=== PATIENT | female | born 1945 | race Caucasian/White ===

== ENCOUNTER 2018-12-03 09:49 | Emergency (ER) | payer MEDICARE, BC ==
[~2018-12-03] VITALS: Ht 170.2 cm; Wt 68.0 kg
== END 2018-12-03 12:15 | disposition home or self-care (01) ==
LOC: ER 09:49
DX: S01.01XA Laceration without foreign body of scalp, initial encounter (principal); W01.198A Fall on same level from slipping, tripping and stumbling with subsequent striking against other object, initial encounter; Z88.8 Allergy status to other drugs, medicaments and biological substances
CPT/HCPCS: 12001; 99282-25

== ENCOUNTER 2019-06-18 16:16 | Inpatient (IN) | payer MEDICARE, BC ==
[~2019-06-18] VITALS: Ht 170.2 cm; Wt 68.2 kg
[2019-06-18 19:56] LABS: BASOPHILS ABSOLUTE AUTO 0.04 K/mm3 (0.00-0.23); BASOPHILS PERCENT AUTO 1 % (0-2); EOSINOPHILS ABSOLUTE AUTO 0.18 K/mm3 (0.00-0.68); EOSINOPHILS PERCENT AUTO 2 % (0-6); Hematocrit 36.6 % (33.0-51.0); Hemoglobin 11.8 g/dL (11.5-16.0); IMMATURE GRAN ABSOLUTE AUTO 0.02 K/mm3 (0.00-0.10); IMMATURE GRAN PERCENT AUTO 0 % (0-1); LYMPHOCYTES PERCENT AUTO 27 % (21-46); MONOCYTES ABSOLUTE AUTO 1.06 K/mm3 (0.16-1.47); MONOCYTES PERCENT AUTO 12 % (4-13); Mean Corpuscular HGB 30.2 pg (26.0-34.0); Mean Corpuscular HGB Conc 32.2 g/dL (31.5-36.5); Mean Corpuscular Volume 94 fL (80-100); Mean Platelet Volume 9.9 fL (9.1-12.4); NEUTROPHILS PERCENT AUTO 58 % (41-73); Platelet Count 223 K/mm3 (150-400); RDW Coefficient Variation 14.2 % (11.7-14.2); RDW Standard Deviation 48.9 fL (35.1-46.3); Red Blood Cell Count 3.91 M/mm3 (3.80-5.20)
[2019-06-18 20:17] LABS: Alanine Aminotransfer (ALT/SGP 22 U/L (12-78); Albumin, Blood 3.3 g/dL (3.4-5.0); Albumin/Globulin Ratio 1.1 (0.8-1.8); Alk Phos 96 U/L (50-136); Anion Gap 10 mmol/L (6-16); Aspartate Aminotrans (AST/SGOT 22 U/L (12-37); Bilirubin, Total 0.3 mg/dL (0.1-1.0); Blood Urea Nitrogen 19 mg/dL (8-24); Bun/Creatinine Ratio 22.7 (12.0-20.0); CO2, Blood 24 mmol/L (21-32); Chloride, Blood 109 mmol/L (98-108); Creatinine, Blood 0.84 mg/dL (0.40-1.00); Glomerular Filtration Rate >60 (60-); Glucose, Blood 90 mg/dL (70-99); Potassium, Blood 2.3 mmol/L (3.5-5.5); Sodium, Blood 143 mmol/L (136-145); Total Protein, Blood 6.3 g/dL (6.4-8.2)
[2019-06-18] MEDS ORDERED: Citalopram HBr10 MG PO (21:01)
[2019-06-18] MEDS ORDERED: FLUZONE HI180 MCG/06 IM (21:01)
[2019-06-18] MEDS ORDERED: Razadyne8 MG PO (21:01)
[2019-06-18] MEDS ORDERED: OLANZAPINE5 M1 PO (21:01)
[2019-06-18] MEDS ORDERED: OMEP20ER PO (21:01)
[2019-06-18] MEDS ORDERED: OLAN2.5 PO (23:11)
[2019-06-18] MEDS ORDERED: DOCU100 PO (23:12)
[2019-06-18] MEDS ORDERED: POLY500 PO (23:12)
[2019-06-18] MEDS ORDERED: ACETAMINOPHEN500 M2 PO (23:12)
[2019-06-18] MEDS ORDERED: PROBIOTIC-10 11 EACH PO (23:13)
[2019-06-18] MEDS ORDERED: ACET500 PO (23:13)
[2019-06-19 06:05] LABS: Anion Gap 5 mmol/L (6-16); Blood Urea Nitrogen 12 mg/dL (8-24); Bun/Creatinine Ratio 15.8 (12.0-20.0); CO2, Blood 27 mmol/L (21-32); Calcium, Blood 8.5 mg/dL (8.5-10.1); Chloride, Blood 112 mmol/L (98-108); Creatinine, Blood 0.76 mg/dL (0.40-1.00); Glomerular Filtration Rate >60 (60-); Glucose, Blood 94 mg/dL (70-99); Potassium, Blood 2.7 mmol/L (3.5-5.5); Sodium, Blood 144 mmol/L (136-145)
--- NOTE | 2019-06-19 06:37 | NUR ---
SHIFT SUMMARY PT HAD NO NOTED ISSUES THIS SHIFT. PT IS ICOTINENT. PT IS NONVERBAL AND DOES NOT FOLLOW DIRECTION. PT HAS BEEN SLEEPING AND BREATHING EASY. BED ALARM IS ARMED AND CALL LIGHT IN REACH.
[2019-06-19] MEDS ORDERED: BISA10S PR (08:09)
[2019-06-19] MEDS ORDERED: ENEMA READY TO133 ML PR (08:10)
[2019-06-19] MEDS ORDERED: Expectoran100 MG/51 PO (08:11)
[2019-06-19] MEDS ORDERED: MILK OF MA400 MG/5 M PO (08:12)
[2019-06-19] MEDS ORDERED: Mag-Al Plus Sus30 ML PO (08:13)
[2019-06-19] MEDS ORDERED: Pepto-Bismol262 MG PO (08:14)
[2019-06-19] MEDS ORDERED: DOCU100 PO (09:40)
[2019-06-19] MEDS ORDERED: ACET500 PO (09:41)
--- NOTE | 2019-06-19 15:13 | NUR ---
TRANSFER NOTE- PT TRANSFERED TO [facility] FOR PT SAFETY. POTASSIUM (K-RIDER) INFUSION COMPLETED PRIOR TO TRANSFER. IV SL AT THE TIME PT ARRIVED. SITE ARROUND THE IV APPEARS PUFFY AND PT C/O PAIN AND BURNING WHEN THE IV WAS FLUSHED WILL REMOVE AND PLACE A NEW IV SHORTLY.
--- NOTE | 2019-06-19 18:24 | NUR ---
CALLED DR HOBBS- UNABLE TO OBTAIN IV ACCESS AT THIS TIME. PT FAMILY LEFT AND PT IS CONFUSED ATTEMPTING TO GET OUT OF BED 3 TIMES IN 5 MINUTES. PT ATTENDS WERE CHANGED AND SHE STATED SHE HAS TO GO BUT CAN NOT TELL STAFF WHERE SHE HAS TO GO. UNABLE TO REDIRECT. PT PLACED ON CAMERAS EARLIER FOR PT SAFETY. THE ONLT THING THAT KEEPS HER IN BED IS STAFF 1:1 WITH HER. REQUESTED [facility] FOR PT SAFETY, NEW ORDER RECIEVED FOR DC IV POTASSIUM AND ATTEMPT PO POTASSIUM 40MEQ PO OT NOW. PER DR HOBBS NO RESTRAINTS TO BE USED, NEW ORDER FOR IM HALDOL.
--- NOTE | 2019-06-19 19:26 | NUR ---
SHIFT SUMMARY- PT WAS ABLE TO TAKE THE PO POTASSIUM 40MEQ, WHILE RN WAS SPEAKING WITH THE DR IV ACCESS WAS OBTAINED. PT HAS A 20G IV IN THE RIGHT FORE ARM THAT IS SALINE LOCKED. IV LINE WAS WRAPPED TO PROTECT FROM PT PULLING. PT IS ON THE MONITORS FOR SAFETY. SPOUSE IS AT THE BEDSIDE. PASSED ON IN REPORT NO RESTRAINTS ORDERED PER DR HOBBS, PRN MEDICATIONS IN EMAR. PT APPEARS TO BE PLEASENTLY CONFUSED HOWEVER WHEN STAFF TRY TO CHANGE HER ATTENDS PT CAN BECOME VIOLENT, STAFF SHOULD BE AWARE.
[2019-06-20 05:47] LABS: Magnesium, Blood 1.9 mg/dL (1.6-2.4)
[2019-06-20 05:51] LABS: Anion Gap 7 mmol/L (6-16); Blood Urea Nitrogen 9 mg/dL (8-24); Bun/Creatinine Ratio 14.2 (12.0-20.0); CO2, Blood 24 mmol/L (21-32); Chloride, Blood 113 mmol/L (98-108); Creatinine, Blood 0.63 mg/dL (0.40-1.00); Glomerular Filtration Rate >60 (60-); Glucose, Blood 104 mg/dL (70-99); Potassium, Blood 2.7 mmol/L (3.5-5.5); Sodium, Blood 144 mmol/L (136-145)
--- NOTE | 2019-06-20 06:46 | NUR ---
THE PATIENT WAS CALM MOST OF THE SHIFT, SHE WASNT TOLERANT OF LINENE CHANGES AND BECAME RESISTIVE AND COMBATIVE DURING BEDSIDE CARE. ONCE OR TWICE SHE STARTED MIGRATING TOWARD THE BOTTOEM OF THE BED TO ESCAPE BUT WAS EASILY RE-DIRECTED AND SETTLED DOWN WELL TO SLEEP REQUESTED. BED LOW AND ALARMED. CALL BRAXTON WITHIN REACH.
--- NOTE | 2019-06-20 07:10 | NUR ---
ASSUMED CARE OF PT- REPORT COMPLETED WITH NIGHT RN AKASH. PER REPOR PT HAD A GOOD NIGHT AND SLEPT WELL. ATTEMPTS TO GET OUT OF BED WERE MINIMAL. POTASSIUM LEVEL DROPPED AGAIN ON MORNING LABS WILL SPEAK TO DR ABOUT POSSIBLE IV REPLACEMENT. PT STILL HAS THE NEW IV THAT WAS PLACED LAST NIGHT. NO STOOLS T/O THE NIGHT.
--- NOTE | 2019-06-20 07:45 | NUR ---
CALLED DR HOBBS- PT POTASSIUM LEVEL WENT BACK DOWN TO 2.7 AFTER THE 40 MEQ OF PO POTASSIUM. NEW ORDER RECIEVED FOR 60MEQ IV POTASSIUM WITH NS TO RUN CONCURRENTLY WITH IT.
--- NOTE | 2019-06-20 12:30 | NUR ---
PT HAD A BOWEL MOVEMENT. PT BECAME AGGITATED ATTEMPTING TO GET OUT OF BED. OFFERED TO TAKE HER TO THE BATHROOM, PT SHOOK HER HEAD AND STARTED WALKING OUT THE DOOR TO THE ROOM. STAFF ASSISTED HER WITH FWW AND GAIT BELT WITH THE IV POLE IN TOW. PT WALKED TO THE END OF THE HAWKINS BY THE WINDOW THEN SHE SUDDENLY TURNED ARROUND AND BEGAN WALKING MORE BRISKLY TOWARDS HER ROOM. PT HAD A LARGE LIQUID BOWEL MOVEMENT, LIGHT BROWN IN COLOR. PT WALKED BACK TO HER ROOM WITH STAFF MULTIPLE BMS ALONG THE WAY, ONCE IN HER ROOM PT ASSISTED TO THE BATHROOM WHERE SHE HAD ANOTHER BOWEL MOVEMENT. PT RECIEVED A SPOUNGE BATH, FULL BODY. PT ABDOMEN APPEARS LESS DISTENDED AND MORE SOFT. BOWEL TONES AUDIBLE FROM A DISTANCE.
--- NOTE | 2019-06-20 16:10 | NUR ---
LAB CAME TO ATTEMPT A LAB DRAW, PT VERY FIGETTY AND UNABLE TO UNDERSTAND WHAT IS GOING ON. PT SPOUSE AT THE BEDSIDE ATTEMPTED TO HOLD HER HAND, PT BECAME AGGITATED UNABLE TO GET THE BLOOD DRAW, PRECISION LATHE OPERATOR LEFT TO GET A DIFFERENT TECH TO ATTEMPT THE POTASSIUM LAB DRAW.
--- NOTE | 2019-06-20 16:25 | NUR ---
SPOKE TO DR HOBBS- PT TO AGGITATED TO GET ACCURATE VITALS, TOO FIDGETTY FOR BLOOD DRAW, APPEARS TO BE OVER STIMULATED. GAVE ZYPREXA PRN AND OK TO HOLD LAB UNTIL PT IS MORE CALM. DR AWARE LAB DRAW DELAYED AND WHY. PT LAST BP ELEVATED D/T MOVING AND AGGITATION.
--- NOTE | 2019-06-20 17:39 | NUR ---
SHIFT SUMMARY- PT HAS HAD NO ACUTE CHANGES T/O THE SHIFT. PT CURRENTLY EATING DINNER WITH HER SPOUSE ASSISTING. PT RECIEVED PRN ZYPREXA A LITTLE EARLIER IN THE SHIFT. SHE APPEARS TO BE A LITTLE MORE CALM AT THIS TIME. WILL CALL LAB FOR ANOTHER ATTEMPT AT BLOOD DRAW AFTER THE PT IS DONE EATING. PT HAD MULTIPLE BMS TODAY. SEE PREVIOUS NOTES FOR MORE DETAILS.
--- NOTE | 2019-06-20 18:38 | NUR ---
CALLED WAITING FOR CALL BACK PT POTASSIUM CAME UP TO 3.1 CALLED TO UPDATE AND SEE IF MORE SUPPLEMENTATION WOULD BE DONE TONIGHT.
--- NOTE | 2019-06-20 19:39 | NUR ---
SPOKE TO DR HOBBS- PT TO RECIEVE 40MEQ OF IV POTASSIUM RUN CONCURRENTLY WITH EQUAL AMOUNT OF SALINE. ORDER PLACED IN THE COMPUTER FOR A NOW DOSE. STATED IF THE PT IS AGGITATED OK FOR STAFF TO WAIT AND GIVE IV POTASSIUM ONCE SHE IS CALMED.
--- NOTE | 2019-06-21 00:20 | NUR ---
PATIENT RESTING. IV POTASSIUM INFUSED. BED ALARM ACTIVATED. WILL CONTINUE TO MONITOR.
--- NOTE | 2019-06-21 03:55 | NUR ---
HOSPITALIST DR CHÁVEZ NOTIFIED OF NO LAB ORDER FOR AM. REPORTS TO ORDER RENAL PANEL. COMPLETE.
--- NOTE | 2019-06-21 04:28 | NUR ---
SHIFT SUMMARY PATIENT HAD NO ACUTE CHANGES OBSERVED. AXOX ONE WITH HX ADVANCED DEMENTIA. ONE ASSIST TO BSC. MEDICATION CRUSHED IN PUDDING. PIV REMAINS INTACT. IV POTASSIUM CHLORIDE X TWO GIVEN PER EMAR. RENAL PANEL LAB ORDERED PER DR CHÁVEZ. BED ALARM ACTIVATED. DENIES PAIN, SOB, AND N/V. AFEBRILE. CALL LIGHT IN REACH. BED IN LOWEST POSITION AND ALARM ACTIVATED. WILL CONTINUE TO MONITOR UNTIL DAY SHIFT NURSE ASSUMES CARE.
[2019-06-21 05:35] LABS: Albumin, Blood 3.1 g/dL (3.4-5.0); Anion Gap 8 mmol/L (6-16); Blood Urea Nitrogen 11 mg/dL (8-24); Bun/Creatinine Ratio 15.7 (12.0-20.0); CO2, Blood 24 mmol/L (21-32); Calcium, Blood 9.1 mg/dL (8.5-10.1); Chloride, Blood 113 mmol/L (98-108); Glomerular Filtration Rate >60 (60-); Glucose, Blood 101 mg/dL (70-99); Phosphorus, Blood 2.6 mg/dL (2.5-4.9); Potassium, Blood 2.9 mmol/L (3.5-5.5); Sodium, Blood 145 mmol/L (136-145)
[2019-06-21 09:47] LABS: Hematocrit 42.1 % (33.0-51.0); Hemoglobin 13.9 g/dL (11.5-16.0)
--- NOTE | 2019-06-21 18:19 | NUR ---
PATIENT WITH HX OF DEMENTIA, ORIENTED TO SELF AND FAMILY MOSTLY NONVERBAL. K+ 3.4 AND AN EXTRA 40MEQ GIVEN. DR. GRANADOS CONSULTING. BLADDER SCAN DONE WHICH SHOWED 220ML'S IN BLADDER, DR. GRANADOS NOTIFIED. PATIENT DENIES ANY PAIN. ABDOMEN REMAINS VERY DISTENDED, NO BM THIS SHIFT. INCONTINENT OF URINE. TOLERATING DIET, NEEDS ASSISTANCE WITH MEALS. VSS, ON RA. UP WITH GAIT BELT AND SBA WALKING IN HALLS. AT BEDSIDE FOR MOST OF THIS SHIFT ASSISTING WITH CARE. 20G IV TO R FA WNL AND SL.
--- NOTE | 2019-06-22 05:13 | NUR ---
pt with severe abd distention firm and no observed stool or flatus. No urine output, bladder scan 784. Call DR Klein to discuss use or protocol order for carlson versus straight cath. updated on no flatus 0 stool . Gave MOM colace sennacot at HS with no effect. Will straight cath as per order. Fed small amt of soft diet. Fall and aspiration precautions in place.
[2019-06-22 05:21] LABS: Hemoglobin 12.6 g/dL (11.5-16.0)
[2019-06-22 05:48] LABS: Alanine Aminotransfer (ALT/SGP 21 U/L (12-78); Albumin, Blood 3.2 g/dL (3.4-5.0); Alk Phos 106 U/L (50-136); Amylase, Blood 50 U/L (25-115); Anion Gap 6 mmol/L (6-16); Aspartate Aminotrans (AST/SGOT 24 U/L (12-37); Bilirubin, Direct <0.1 mg/dL (0.0-0.3); Bilirubin, Indirect Unable to Calculate mg/dL (0.1-0.7); Bilirubin, Total 0.5 mg/dL (0.1-1.0); Blood Urea Nitrogen 15 mg/dL (8-24); Bun/Creatinine Ratio 19.7 (12.0-20.0); CO2, Blood 25 mmol/L (21-32); Calcium, Blood 9.4 mg/dL (8.5-10.1); Chloride, Blood 115 mmol/L (98-108); Creatinine, Blood 0.76 mg/dL (0.40-1.00); Globulin, Blood 3.2 g/dL (2.2-4.0); Glomerular Filtration Rate >60 (60-); Glucose, Blood 103 mg/dL (70-99); Magnesium, Blood 2.2 mg/dL (1.6-2.4); Phosphorus, Blood 3.1 mg/dL (2.5-4.9); Potassium, Blood 3.5 mmol/L (3.5-5.5); Sodium, Blood 146 mmol/L (136-145); Total Protein, Blood 6.4 g/dL (6.4-8.2)
--- NOTE | 2019-06-22 16:32 | NUR ---
SHIFT SUMMARY PATIENT DENIES PAIN, NAUSEA, AND SHORTNESS OF BREATH. PATIENT UP ONE ASSIST TO BATH ROOM AND WALKED IN HALLWAY WITH HER SEVERAL TIMES TODAY. PATIENT'S ABDOMEN IS STILL DISTENDED. NEW ORDERS FOR BOWEL CARE RECEIVED. BLADDER SCAN Q6, STRAIGHT CATH IF GREATER THAN 400. CALL LIGHT IN REACH.
--- NOTE | 2019-06-22 20:08 | NUR ---
PT sleeping with fall precautions in place. verified remote camera monitoring with [employer] camera technical system analyst. PT continues no stool since 06/19/19 recorded and she has been straight cathed at 0630 AM for 680 clear anish urine. Severe abd distention tympanic hyperactive bowel souns , no flatus observed but loud gurgles of bowel sounds observed intermittantly.
[2019-06-23 07:22] LABS: Albumin, Blood 3.5 g/dL (3.4-5.0); Anion Gap 10 mmol/L (6-16); Blood Urea Nitrogen 15 mg/dL (8-24); Bun/Creatinine Ratio 20.9 (12.0-20.0); CO2, Blood 24 mmol/L (21-32); Calcium, Blood 9.5 mg/dL (8.5-10.1); Chloride, Blood 112 mmol/L (98-108); Creatinine, Blood 0.72 mg/dL (0.40-1.00); Glomerular Filtration Rate >60 (60-); Glucose, Blood 109 mg/dL (70-99); Magnesium, Blood 2.5 mg/dL (1.6-2.4); Phosphorus, Blood 3.3 mg/dL (2.5-4.9); Potassium, Blood 3.3 mmol/L (3.5-5.5); Sodium, Blood 146 mmol/L (136-145)
--- NOTE | 2019-06-23 10:00 | NUR ---
PT. AMBULATING IN HAWKINS WITH SPOUSE, HAD A LARGE LOOSE BM ON FLOOR, BROWN IN COLOR. PT. CLEANED UP AND TAKEN BACK TO ROOM FOR SHOWER. FOLLOWED SPOUSE BACK TO ROOM.
--- NOTE | 2019-06-23 17:59 | NUR ---
PT. SITTING UP IN BED WATCHING TV. HAS BEEN NONVERBAL ALL DAY, OCCASSIONALLY PT. SMILES OR NODS HER HEAD OTHERWISE SHE DOES NOT RESOND AT ALL. PT. HAD ANOTHER BM IN THE HAWKINS WHILE AMBULATING. SECOND SHOWER GIVEN. PT. TAKES HER MEDS WELL. BLADDER SCAN SHOWED 199 PVR. PT. GETTING BETTER AT COOPERATING WITH US AFTER HER SPOUSE LEAVES. TAKES MEDS WELL IN APPLE SAUCE. COVERED IV WITH KOBAN TO PREVENT PT. FROM PLAYING WITH IT. NO OTHER NOTED CHANGES THIS SHIFT. EVEN THOUGH THE PT. HAD 2 LARGE LIQUID BMS TODAY HER ABDOMEN IS STILL DISTENDED WITH HYPERACTIVE BOWEL TONES.
--- NOTE | 2019-06-24 04:47 | NUR ---
SHIFT SUMMARY RESPONDS TO VERBAL/PAINFUL STIMULI OCCASIONALLY. ORIENTED TO SELF/FAMILY NO SIGNS/SYMPTOMS OF PAIN/DISCOMFORT. REPOSITIONED TOLERATED. BLADDER SCAN YEILDED 484; CONSULTED OUTSIDE SALES MANAGER, STATED TO HOLD OFF ON ANY STRAIGHT CATH AT THIS TIME. REMAINS INCONTINENT OF URINE AND STOOL; HOWEVER NO EPISODES DIARRHEA THIS SHIFT. HYPERTENSIVE BUT APPEARS ON TREND WITH PREVIOUS PRESSURES. APPEARED TO REST MUCH OF SHIFT. NO AUCTE CHANGES NOTED. BED IN LOWEST POSITION; ALARM ON. CALL LIGHT WITHIN REACH. WCTM.
[2019-06-24 05:04] LABS: Hemoglobin 11.9 g/dL (11.5-16.0)
[2019-06-24 05:26] LABS: Anion Gap 8 mmol/L (6-16); Blood Urea Nitrogen 18 mg/dL (8-24); Bun/Creatinine Ratio 22.4 (12.0-20.0); CO2, Blood 22 mmol/L (21-32); Calcium, Blood 9.2 mg/dL (8.5-10.1); Chloride, Blood 115 mmol/L (98-108); Creatinine, Blood 0.81 mg/dL (0.40-1.00); Glomerular Filtration Rate >60 (60-); Glucose, Blood 97 mg/dL (70-99); Magnesium, Blood 2.3 mg/dL (1.6-2.4); Phosphorus, Blood 3.6 mg/dL (2.5-4.9); Sodium, Blood 145 mmol/L (136-145)
[2019-06-24] MEDS ORDERED: Prinivil10 MG PO (11:18)
[2019-06-24] MEDS ORDERED: POLY500 PO (11:18)
[2019-06-24] MEDS ORDERED: POTA10T PO (11:19)
[2019-06-24] MEDS ORDERED: SPIR25 PO (11:19)
--- NOTE | 2019-06-24 13:30 | NUR ---
PT. TRANSFERRED BACK TO [place] WITH HH WITH [facility]. SPOUSE TRANSPORTING PT. BACK TO [place] VIA CAR. PT. DID NOT HAVE A BM BEFORE LEAVING HERE. PT. EXCITED TO BE GOING HOME.
--- NOTE | 2019-06-24 18:25 | NUR ---
Review of p[atient with . Gave him literature on [facility]. He reviewed how pt was functioning at the memory long term. Reviewed with strategies of care acan levels of care including code status. Also reviewed hospice care for when the pt declines futher and discussing patietns and family wishes. will speak with nurse at [facility] about care needs.
[2019-06-28 06:07] LABS: ALDOS/RENIN RATIO >10.2 (0.0-30.0); ALDOSTERONE 1.7 ng/dL (0.0-30.0)
== END 2019-06-24 13:35 | disposition home health service (06) | DRG 392 ==
LOC: ER 16:16 → MEDS 16:17 → ENPENDDIS 06-24 10:00 → MEDS 06-24 13:35
PROVIDERS: Family Medicine; Internal Medicine; Internal Medicine Nephrology; Physician Assistant; ADMIT Hospitalist
DX: R14.0 Abdominal distension (gaseous) (principal); F02.81 Dementia in other diseases classified elsewhere, unspecified severity, with behavioral disturbance; N17.9 Acute kidney failure, unspecified; E87.0 Hyperosmolality and hypernatremia; G30.9 Alzheimer's disease, unspecified; E87.6 Hypokalemia; K21.9 Gastro-esophageal reflux disease without esophagitis; F32.9 Major depressive disorder, single episode, unspecified; I12.9 Hypertensive chronic kidney disease with stage 1 through stage 4 chronic kidney disease, or unspecified chronic kidney disease; N18.2 Chronic kidney disease, stage 2 (mild); E86.9 Volume depletion, unspecified; E88.09 Other disorders of plasma-protein metabolism, not elsewhere classified; K59.00 Constipation, unspecified; R33.9 Retention of urine, unspecified
CPT/HCPCS: 36415; 74018; 74176; 80048; 80053; 80069; 82088; 82150; 82248; 83690; 83735; 84100; 84132; 84133; 84244; 85014; 85018; 85025; 96365; 96366; 96375; 97116; 97162; 97530; 99285-25; J1630; J1650; J2060; J3480; J7030; J7050

== ENCOUNTER 2019-07-03 09:45 | Emergency (ER) | payer MEDICARE, BC ==
[~2019-07-03] VITALS: Ht 165.1 cm; Wt 54.4 kg
[~2019-07-03 09:45] MED LIST: ACET500 PO; ACETAMINOPHEN500 M2 PO; BISA10S PR; Citalopram HBr10 MG PO; DOCU100 PO; ENEMA READY TO133 ML PR; Expectoran100 MG/51 PO; FLUZONE HI180 MCG/06 IM; MILK OF MA400 MG/5 M PO; Mag-Al Plus Sus30 ML PO; OLAN2.5 PO; OLANZAPINE5 M1 PO; OMEP20ER PO; POLY500 PO; POTA10T PO; PROBIOTIC-10 11 EACH PO; Pepto-Bismol262 MG PO; Prinivil10 MG PO; Razadyne8 MG PO; SPIR25 PO
== END 2019-07-03 10:43 | disposition home or self-care (01) ==
LOC: ER 09:45
DX: S01.01XA Laceration without foreign body of scalp, initial encounter (principal); F03.90 Unspecified dementia, unspecified severity, without behavioral disturbance, psychotic disturbance, mood disturbance, and anxiety; W18.30XA Fall on same level, unspecified, initial encounter; Z88.8 Allergy status to other drugs, medicaments and biological substances; Z79.899 Other long term (current) drug therapy; I10 Essential (primary) hypertension; K21.9 Gastro-esophageal reflux disease without esophagitis
CPT/HCPCS: 12001; 99283-25

== ENCOUNTER 2019-07-19 13:46 | Inpatient (IN) | payer MEDICARE, BC ==
[~2019-07-19] VITALS: Ht 170.2 cm; Wt 65.1 kg
[2019-07-19 15:17] LABS: BASOPHILS ABSOLUTE AUTO 0.05 K/mm3 (0.00-0.23); BASOPHILS PERCENT AUTO 0 % (0-2); EOSINOPHILS PERCENT AUTO 0 % (0-6); Hematocrit 38.4 % (33.0-51.0); Hemoglobin 12.5 g/dL (11.5-16.0); IMMATURE GRAN ABSOLUTE AUTO 0.07 K/mm3 (0.00-0.10); IMMATURE GRAN PERCENT AUTO 0 % (0-1); LYMPHOCYTES ABSOLUTE AUTO 0.71 K/mm3 (0.84-5.20); LYMPHOCYTES PERCENT AUTO 4 % (21-46); MONOCYTES ABSOLUTE AUTO 0.67 K/mm3 (0.16-1.47); MONOCYTES PERCENT AUTO 4 % (4-13); Mean Corpuscular HGB 30.7 pg (26.0-34.0); Mean Corpuscular HGB Conc 32.6 g/dL (31.5-36.5); Mean Corpuscular Volume 94 fL (80-100); Mean Platelet Volume 10.5 fL (9.1-12.4); NEUTROPHILS PERCENT AUTO 91 % (41-73); Platelet Count 230 K/mm3 (150-400); RDW Coefficient Variation 14.2 % (11.7-14.2); RDW Standard Deviation 49.4 fL (35.1-46.3); Red Blood Cell Count 4.07 M/mm3 (3.80-5.20)
[2019-07-19] MEDS ORDERED: OLANZAPINE2.5 MG PO (15:23)
[2019-07-19 15:31] LABS: International Normalized Ratio 1.11; Prothrombin Time Results 11.8 Sec (9.7-11.5)
[2019-07-19 15:37] LABS: Alanine Aminotransfer (ALT/SGP 31 U/L (12-78); Albumin, Blood 3.6 g/dL (3.4-5.0); Albumin/Globulin Ratio 1.1 (0.8-1.8); Alk Phos 88 U/L (50-136); Anion Gap 11 mmol/L (6-16); Aspartate Aminotrans (AST/SGOT 28 U/L (12-37); Bilirubin, Total 0.3 mg/dL (0.1-1.0); Blood Urea Nitrogen 27 mg/dL (8-24); Bun/Creatinine Ratio 29.8 (12.0-20.0); CO2, Blood 23 mmol/L (21-32); Calcium, Blood 9.4 mg/dL (8.5-10.1); Chloride, Blood 111 mmol/L (98-108); Creatinine, Blood 0.91 mg/dL (0.40-1.00); Globulin, Blood 3.2 g/dL (2.2-4.0); Glomerular Filtration Rate >60 (60-); Glucose, Blood 154 mg/dL (70-99); Potassium, Blood 2.9 mmol/L (3.5-5.5); Sodium, Blood 145 mmol/L (136-145); Total Protein, Blood 6.8 g/dL (6.4-8.2)
[2019-07-19 15:50] LABS: Source, Urine Catheter
[2019-07-19 15:52] LABS: Bilirubin, Urine Neg (Neg); Blood, Urine 5+ (Neg); Glucose Qualitative, Urine Neg (Neg); Ketones, Urine 1+ (Neg); Leukocyte Esterase, Urine 3+ (Neg); Nitrite, Urine Pos (Neg); Protein, Urine 2+ (Neg); Urobilinogen, Urine NORM (Normal)
[2019-07-19 16:00] LABS: Appearance, Urine Cloudy (Clear); Color, Urine Yellow (P-Yellow)
[2019-07-19 16:02] LABS: Bacteria Many /hpf; Squamous Epithelial Cells Not Seen /hpf (Few); White Blood Cells, Urine TNTC /hpf (0-5)
--- NOTE | 2019-07-19 19:06 | NUR ---
ADMIT ER ADMIT WITH LEFT HIP FX. NPO AT MIDNIGHT. PT APPEARS TO BE COMFORTABLE AT REST. PT WITH HX OF DEMENTIA AND IS PLEASANTLY CONFUSED. ABLE TO OCCASSIONALLY SAY YES OR NO TO QUESTIONS. REPORTS THIS IS HER BASELINE. ATTENDS IN PLACE AND DRY AT THIS TIME. ORTHO CONSULTED AND EXPECTED TO SEE PT AND FAMILY IN MORNING. CURRENTLY ASSISTING PT WITH MEAL. BED ALARM IN PLACE FOR SAFETY.
--- NOTE | 2019-07-20 05:28 | NUR ---
SHIFT SUMMARY: DAVID RESTED FOR THE MAJORITY OF THE SHIFT. HER STATES THAT THERAPY WAS ATTEMPTED IN THE PAST AND THAT DAVID WAS UNCOOPERATIVE. SHE IS NOT ABLE TO MAKE HER NEEDS KNOWN. OCCASIONALLY, SHE MAY ANSWER A QUESTION WITH A ONE WORD ANSWER OR HEAD NOD, OCCASIONALLY SHE REPEATS A PORITION OF THE QUESTION. SHE DID SHOW A FACIAL GRIMACE DURING HER ATTENDS CHANGE. SHE WAS MADE NPO AT MIDNIGHT. SHE DOES NOT USE HER CALL LIGHT. SHE RESTING COMFORTABLY IN BED WITH THE BED ALARM ON.
[2019-07-20 05:30] LABS: BASOPHILS ABSOLUTE AUTO 0.03 K/mm3 (0.00-0.23); BASOPHILS PERCENT AUTO 0 % (0-2); EOSINOPHILS ABSOLUTE AUTO 0.03 K/mm3 (0.00-0.68); EOSINOPHILS PERCENT AUTO 0 % (0-6); Hematocrit 37.2 % (33.0-51.0); Hemoglobin 12.4 g/dL (11.5-16.0); IMMATURE GRAN ABSOLUTE AUTO 0.03 K/mm3 (0.00-0.10); IMMATURE GRAN PERCENT AUTO 0 % (0-1); LYMPHOCYTES ABSOLUTE AUTO 0.94 K/mm3 (0.84-5.20); LYMPHOCYTES PERCENT AUTO 8 % (21-46); MONOCYTES ABSOLUTE AUTO 0.95 K/mm3 (0.16-1.47); MONOCYTES PERCENT AUTO 9 % (4-13); Mean Corpuscular HGB 30.8 pg (26.0-34.0); Mean Corpuscular HGB Conc 33.3 g/dL (31.5-36.5); Mean Corpuscular Volume 92 fL (80-100); Mean Platelet Volume 10.6 fL (9.1-12.4); NEUTROPHILS ABSOLUTE AUTO 9.21 K/mm3 (1.96-9.15); NEUTROPHILS PERCENT AUTO 82 % (41-73); Platelet Count 191 K/mm3 (150-400); RDW Coefficient Variation 13.9 % (11.7-14.2); RDW Standard Deviation 47.2 fL (35.1-46.3); Red Blood Cell Count 4.03 M/mm3 (3.80-5.20); White Blood Cell Count 11.19 K/mm3 (4.00-11.30)
[2019-07-20 05:43] LABS: Anion Gap 10 mmol/L (6-16); Blood Urea Nitrogen 20 mg/dL (8-24); CO2, Blood 21 mmol/L (21-32); Calcium, Blood 8.6 mg/dL (8.5-10.1); Chloride, Blood 113 mmol/L (98-108); Glomerular Filtration Rate >60 (60-); Glucose, Blood 120 mg/dL (70-99); Potassium, Blood 2.7 mmol/L (3.5-5.5); Sodium, Blood 144 mmol/L (136-145)
--- NOTE | 2019-07-20 15:00 | NUR ---
Initial Visit: Pt is alert, she is sitting up in bed, enjoying the company from her and sons. She is not participating in the conversation, but has a smile on her face. She has severe dementia. Up until falling and breaking her hip, she was ambulatory at [facility], where she lives. Pt needs assistance with eating, she requires hand feeding. Discussed with family. As she is no longer ambulatory, per her injury to her hip, the pt's PCP has suggested to the family that hospice care would be a good option for her. Surgeon was in to discuss repairing the injury with surgery, however, they have been told that she may benefit from no surgical intervention at this point. and sons are supportive of hospice plan. They do not know which agency they would like at this time, but the three local agencies were discussed. Conversation covered nurse visits, bath aid, support of [facility] staff for assistance with symptom management. It appears that they would like to discharge with hospice at this point. Will place hospice consult.
--- NOTE | 2019-07-20 15:29 | NUR ---
DR. GUNTER NOTIFIED REGARDING HIGH BLOOD PRESSURE. DR. GUNTER TO PLACE NEW ORDERS.
--- NOTE | 2019-07-20 15:41 | NUR ---
SHIFT SUMMARY DR. MARQUEZ IN TO CONSULT ON PATIENT. FAMILY SEEMS TO BE LEANING TOWARDS CONSERVATIVE MANAGEMENT OF LEFT HIP FX AND POSSIBLY INTERESTED IN HOSPICE. PALLIATIVE CARE CONSULT IN PLACE AND EXPECTING TO SPEAK TO FAMILY TODAY. PT APPEARS TO BE COMFORTABLE AT REST AND ONLY SLIGHTLY GRIMACES WITH POSITION CHANGES AND ATTEND CHANGES BY STAFF. SADA REG FOODS BUT DOES NEED ASSISTANCE WITH MEALS. IV ABX FOR UTI ORDERED. BED ALARM IN PLACE FOR SAFETY. PT HAS BEEN PLEASANTLY CONFUSED AND COOPERATIVE WITH CARE. CALL LIGHT WITHIN REACH.
--- NOTE | 2019-07-21 04:05 | NUR ---
SHIFT SUMMARY: PATIENT IS ALERT BUT CONFUSED. ANSWERS QUESTIONS WITH YES OR NO AT TIMES, MOSTLY NON VERBAL. ABLE TO TAKE PILLS CRUSHED IN APPLE SAUCE, WITH NO DIFFICULTY SWALLOWING. PATIENT IS INCONTINENT OF URINE, NO BM. ABDOMENT IS SERVERLY DISTENDED, WITH TYMPANIC BS, PATIENT HAS HX OF JOSÉ MIGUEL SYNDROME. PATIENT IS MOANING, GRIMACING AND IS BRACING. DR WARE IS NOTIFIED AND FREQUENCY OF FENTANYL IS INCREASED FORM Q6H TO Q4H. BED ALARM IS ON FOR SAFETY.
[2019-07-21 05:27] LABS: BASOPHILS ABSOLUTE AUTO 0.04 K/mm3 (0.00-0.23); BASOPHILS PERCENT AUTO 0 % (0-2); EOSINOPHILS ABSOLUTE AUTO 0.08 K/mm3 (0.00-0.68); EOSINOPHILS PERCENT AUTO 1 % (0-6); Hematocrit 38.5 % (33.0-51.0); Hemoglobin 12.9 g/dL (11.5-16.0); IMMATURE GRAN ABSOLUTE AUTO 0.02 K/mm3 (0.00-0.10); IMMATURE GRAN PERCENT AUTO 0 % (0-1); LYMPHOCYTES ABSOLUTE AUTO 1.22 K/mm3 (0.84-5.20); LYMPHOCYTES PERCENT AUTO 12 % (21-46); MONOCYTES ABSOLUTE AUTO 1.01 K/mm3 (0.16-1.47); MONOCYTES PERCENT AUTO 10 % (4-13); Mean Corpuscular HGB 30.7 pg (26.0-34.0); Mean Corpuscular HGB Conc 33.5 g/dL (31.5-36.5); Mean Corpuscular Volume 92 fL (80-100); Mean Platelet Volume 10.9 fL (9.1-12.4); NEUTROPHILS ABSOLUTE AUTO 8.06 K/mm3 (1.96-9.15); NEUTROPHILS PERCENT AUTO 77 % (41-73); Platelet Count 187 K/mm3 (150-400); RDW Coefficient Variation 14.2 % (11.7-14.2); White Blood Cell Count 10.43 K/mm3 (4.00-11.30)
[2019-07-21 05:50] LABS: Anion Gap 9 mmol/L (6-16); Blood Urea Nitrogen 17 mg/dL (8-24); Bun/Creatinine Ratio 26.8 (12.0-20.0); CO2, Blood 19 mmol/L (21-32); Chloride, Blood 116 mmol/L (98-108); Creatinine, Blood 0.64 mg/dL (0.40-1.00); Glomerular Filtration Rate >60 (60-); Glucose, Blood 111 mg/dL (70-99); Magnesium, Blood 2.1 mg/dL (1.6-2.4); Phosphorus, Blood 2.2 mg/dL (2.5-4.9); Sodium, Blood 144 mmol/L (136-145)
--- NOTE | 2019-07-21 07:45 | NUR ---
ASSUMED CARE: PT RESTING IN BED AT THIS TIME. HEALTH COMPANION IN ROOM COLLECTING VITALS.
--- NOTE | 2019-07-21 13:59 | NUR ---
PT WAS GIVEN SUPPOSITORY 2 HOURS AGO WITH NO EFFECT OF YET. CALL TO DR GUNTER WHO STATES SHE IS WAITING FOR XRAY RESULT TO DETERMINE NEXT COURSE OF ACTION
--- NOTE | 2019-07-21 14:54 | NUR ---
CALL TO DR GUNTER TO REPORT ABD XRAY WITH SIMILARITY TO COMPARISON. STATES NO FURTHER ACTION AT THIS TIME. WILL REPEAT ABD XRAY IN AM.
--- NOTE | 2019-07-21 18:21 | NUR ---
SHIFT SUMMARY: PT MEDICATED TO INDUCE BM WITH NO EFFECT. DR GUNTER AWARE AND AWARE OF XRAY RESULT. STATES WILL MONITOR AND ORDER REPEAT XRAY IN AM TO FURTHER EVALUATE. TREATING THIS AND HYPOKALEMIA PRIOR TO PT BEING DC'D
--- NOTE | 2019-07-22 07:47 | NUR ---
SUMMARY XRAY DONE THIS AM. WAITING RESULTS. PT RESTING. NO CURRENT DISTRESS. SMILES.
[2019-07-22 09:31] LABS: Anion Gap 7 mmol/L (6-16); Blood Urea Nitrogen 17 mg/dL (8-24); Bun/Creatinine Ratio 26.6 (12.0-20.0); CO2, Blood 21 mmol/L (21-32); Chloride, Blood 114 mmol/L (98-108); Creatinine, Blood 0.64 mg/dL (0.40-1.00); Glomerular Filtration Rate >60 (60-); Glucose, Blood 97 mg/dL (70-99); Magnesium, Blood 2.1 mg/dL (1.6-2.4); Phosphorus, Blood 2.6 mg/dL (2.5-4.9); Potassium, Blood 3.3 mmol/L (3.5-5.5); Sodium, Blood 142 mmol/L (136-145)
--- NOTE | 2019-07-22 14:37 | NUR ---
PASSED FLATUS AND STOOL ADMINISTERING DULCOLAX SUPPOSITORY PER ORDERS, PT PASSED LARGE AMOUNT FLATUS AND SMALL/MEDIUM AMOUNT LOOSE STOOL. ABDOMEN CONTINUES TO BE DISTENDED BUT FEELS SOFTER AFTER PASSING OF FLATUS AND STOOL.
--- NOTE | 2019-07-22 17:24 | NUR ---
SUMMARY NO ACUTE CHANGES T/O SHIFT. REPOSITIONED PT T/O SHIFT. ADMINISTERED MEDS PER ORDERS. PT'S ABDOMEN VERY DISTENDED. DULCOLAX SUPPOSITORY WAS ADMINISTERED, PT PASSED A LARGE AMOUNT OF FLATUS AND HAD A SM/MED LIQUID STOOL. ABDOMEN FELT SLIGHTLY SOFTER AND LESS DISTENDED AFTERWARD. FAMILY HAS BEEN AT BEDSIDE T/O SHIFT.
[2019-07-23 05:09] LABS: Anion Gap 5 mmol/L (6-16); Blood Urea Nitrogen 19 mg/dL (8-24); Bun/Creatinine Ratio 27.4 (12.0-20.0); CO2, Blood 22 mmol/L (21-32); Calcium, Blood 8.9 mg/dL (8.5-10.1); Chloride, Blood 112 mmol/L (98-108); Creatinine, Blood 0.69 mg/dL (0.40-1.00); Glomerular Filtration Rate >60 (60-); Glucose, Blood 102 mg/dL (70-99); Potassium, Blood 4.4 mmol/L (3.5-5.5); Sodium, Blood 139 mmol/L (136-145)
--- NOTE | 2019-07-23 06:23 | NUR ---
SUMMARY DR FIELD SAW PT TONIGHT, AND STATED HE WOULD SEND OVER INFO TO PTS PCP REGARDING POSSIBLE MED FOR THIS CHRONIC PROBLEM.HE REPORTED A SCOPE WOULD NOT BE USEFUL GIVEN THE SITUATION/PT CONDITION.PT REQUIRED IV MED X1 TONIGHT FOR HIP PAIN.
[2019-07-23] MEDS ORDERED: CIPR500 PO (10:12)
--- NOTE | 2019-07-23 17:04 | NUR ---
SUMMARY NO ACUTE CHANGES T/O SHIFT. PT ABDOMEN REMAINS VERY DISTENDED BUT SOFT. DC DELAYED DUE TO FAMILY CONCERNS, PLAN FOR DC ON FRIDAY. REPOSITIONED T/O SHIFT. PROTECTIVE MEPILEX CHANGED TO COCCYX. FAMILY AT BEDSIDE.
[2019-07-24 05:08] LABS: Anion Gap 6 mmol/L (6-16); Blood Urea Nitrogen 18 mg/dL (8-24); Bun/Creatinine Ratio 26.5 (12.0-20.0); CO2, Blood 23 mmol/L (21-32); Calcium, Blood 9.5 mg/dL (8.5-10.1); Chloride, Blood 107 mmol/L (98-108); Creatinine, Blood 0.68 mg/dL (0.40-1.00); Glomerular Filtration Rate >60 (60-); Glucose, Blood 106 mg/dL (70-99); Magnesium, Blood 2.3 mg/dL (1.6-2.4); Phosphorus, Blood 3.4 mg/dL (2.5-4.9); Potassium, Blood 4.9 mmol/L (3.5-5.5); Sodium, Blood 136 mmol/L (136-145)
--- NOTE | 2019-07-24 05:22 | NUR ---
PATIENT HAS NO EXPRESSED ANY PAIN VERBALLY, WITH REPOSITIONING, SHE HAS PULLED HER BROWS TOGETHER BUT NOTHING ELSE. SHE DOES NOT HELP WITH TURNING AND CARE SHOULD BE TAKEN WITH TURNING SHE MAY BE STARTLED AND REACH TOWARDS CAREGIVERS FACE OR NECK. SHE IS INCONTINENT OF URINE TWICE THIS SHIFT ABOUT 7 HOURS APART. I HAVE TRIED TO GET HER TO DRINK FLUIDS, SHE IS NOT FOLLOWING CUES TO SIP. NO OTHER ACUTE CHANGES.
--- NOTE | 2019-07-24 09:38 | NUR ---
DR NELSON HERE TO SEE PT, REPORTS WILL TALK TO DR HE AND REPORTS WILL CALL . REPORTS SHE APPEARS MORE DISTENDED THAN YESTERDAY BUT APPEARS COMFORTABLE.
--- NOTE | 2019-07-24 10:07 | NUR ---
PT MED WITHOUT DIFFICULTY WITH MEDS CRUSHED IN APPLESAUCE WITH HOB ELEVATED. PT DRANK SMALL AMT WITHOUT DIFFICULTY WITH ENCOURAGEMENT.
--- NOTE | 2019-07-24 12:08 | NUR ---
DR EH HERE TO SEE PT. FAMILY PRESENT.
--- NOTE | 2019-07-24 16:34 | NUR ---
SHIFT SUMMARY: PT EATING AND DRINKING WITH FAMILY ASSIST. PT BEEN ASSISTED WITH ADL'S PRN. PT BEEN REPOSITIONED MULT TIMES TODAY. PT FAMILY IN ROOM MOST OF DAY. BED ALARM IN PLACE. PT HAD BM TODAY. DR HE BEEN TO SEE PT.
--- NOTE | 2019-07-25 04:47 | NUR ---
Patient wakes easily to verbal stim. she occasionally will speak a word or two in context to a question. or statement. Incontinent of urine, meplex to coxxyx, turned approx every two hours. no acute changes.
[2019-07-25 05:38] LABS: Hematocrit 37.5 % (33.0-51.0); Hemoglobin 12.4 g/dL (11.5-16.0); Mean Corpuscular HGB 30.6 pg (26.0-34.0); Mean Corpuscular HGB Conc 33.1 g/dL (31.5-36.5); Mean Corpuscular Volume 93 fL (80-100); Mean Platelet Volume 10.7 fL (9.1-12.4); Platelet Count 259 K/mm3 (150-400); RDW Standard Deviation 47.9 fL (35.1-46.3); Red Blood Cell Count 4.05 M/mm3 (3.80-5.20); White Blood Cell Count 8.53 K/mm3 (4.00-11.30)
[2019-07-25 05:51] LABS: Anion Gap 8 mmol/L (6-16); Blood Urea Nitrogen 22 mg/dL (8-24); Bun/Creatinine Ratio 29.7 (12.0-20.0); CO2, Blood 21 mmol/L (21-32); Calcium, Blood 9.4 mg/dL (8.5-10.1); Chloride, Blood 108 mmol/L (98-108); Creatinine, Blood 0.74 mg/dL (0.40-1.00); Glomerular Filtration Rate >60 (60-); Glucose, Blood 107 mg/dL (70-99); Phosphorus, Blood 3.3 mg/dL (2.5-4.9); Potassium, Blood 4.3 mmol/L (3.5-5.5); Sodium, Blood 137 mmol/L (136-145)
--- NOTE | 2019-07-25 09:16 | NUR ---
PT MED WITH APPLESAUCE AND WATER, PT DRANK WATER WELL WITH NO STRAW.
--- NOTE | 2019-07-25 11:46 | NUR ---
PT ATE WELL WITH FAMILY ASSIST WITH HOB ELEVATED.
--- NOTE | 2019-07-25 13:35 | NUR ---
OTHER GAMALIEL [place] GIVEN REPORT AND IS ASSUMING CARE OF PT AT THIS TIME.
--- NOTE | 2019-07-25 16:26 | NUR ---
SHIFT SUMMARY NO ACUTE CHANGES SINCE ASSUMING CARE AT 1300 TODAY. PT ABLE TO CONSUME A SMALL AMOUNT OF PO INTAKE WITH SPOUSE FEEDING HER. REPOSITIONED Q2 W/PRN ATTEND CHANGES. IS CURRENTLY RESTING IN BED WITH SPOUSE AT BEDSIDE. WILL CONTINUE TO MONITOR AND GIVE REPORT TO ONCOMING RN.
--- NOTE | 2019-07-26 04:41 | NUR ---
SHIFT SUMMARY PT HAS BEEN NONVERBAL THROUGH THE SHIFT. SHE OPENS HER EYES TO VERBAL STIMULI BUT DOES NOT RESPOND VERBALLY. SHE HAS BEEN BEDREST WITH MULTIPLE REPOSITIONINGS AND HAS BEEN CHANGED PRN. PT TOOK MEDS CRUSHED WITH APPLESAUCE. PT HAS APPEARED COMFORTABLE AND HAS BEEN RESTING QUIETLY MOST OF THE NIGHT. BED ALARM HAS BEEN ON FOR SAFETY.
--- NOTE | 2019-07-26 11:13 | NUR ---
DISCHARGED TO [facility]. REPORT CALLED TO GAMALIEL TAPIA AT [facility]. DC'D IV, CATHETER INTACT. PT LEFT UNIT IN [facility] ACCOMPANIED BY TRANSPORT AND SPOUSE. SPOUSE HAD POSSESSIONS.
== END 2019-07-26 11:16 | disposition hospice, home (50) | DRG 536 ==
LOC: ER 13:46 → SURS 16:34
PROVIDERS: Emergency Medicine; Internal Medicine; ADMIT Internal Medicine
DX: S72.032A Displaced midcervical fracture of left femur, initial encounter for closed fracture (principal); N39.0 Urinary tract infection, site not specified; B96.20 Unspecified Escherichia coli [E. coli] as the cause of diseases classified elsewhere; E87.6 Hypokalemia; E83.39 Other disorders of phosphorus metabolism; I10 Essential (primary) hypertension; F32.9 Major depressive disorder, single episode, unspecified; B37.9 Candidiasis, unspecified; G30.9 Alzheimer's disease, unspecified; F02.80 Dementia in other diseases classified elsewhere, unspecified severity, without behavioral disturbance, psychotic disturbance, mood disturbance, and anxiety; W19.XXXA Unspecified fall, initial encounter; K59.8 Other specified functional intestinal disorders; K21.9 Gastro-esophageal reflux disease without esophagitis; Z66 Do not resuscitate
CPT/HCPCS: 36415; 71045; 73502; 74018; 80048; 80053; 80069; 81001; 83735; 84100; 84132; 85025; 85027; 85610; 87077; 87086; 87186; 93005; 93010; 96365; 99285-25; A9270; J0360; J0696; J0744; J1650; J3010; J3480; J7030; J7060; P9612